=== PATIENT | female | born 1980 | race Caucasian/White ===

== ENCOUNTER 2016-07-29 07:54 | Outpatient (CLI) | payer OTHER ==
[2016-07-29 08:22] VITALS: BMI 25.2
== END 2016-07-29 11:38 | disposition home or self-care (01) ==
LOC: FBCOUT 07:54 → FBC 08:00 → FBCOUT 11:38
PROVIDERS: ATTEND Advanced Practice Midwife
DX: O47.9 False labor, unspecified (principal); Z3A.00 Weeks of gestation of pregnancy not specified
CPT/HCPCS: 59025; G0463

== ENCOUNTER 2016-08-01 13:12 | Inpatient (IN) | payer OTHER ==
[2016-08-08] MEDS ORDERED: OXYTOCIN IN LR 500 ML IV ONE ×2 (07:25→08:10)
[2016-08-08 08:06] VITALS: BMI 26.9
[2016-08-08] MEDS ORDERED: MINERAL OIL 25 ML BOT ONE (08:09)
[2016-08-08] MEDS ORDERED: LACTATED RINGERS 1,000 ML ONE (08:09)
[2016-08-08] MEDS ORDERED: OXYTOCIN 10 UNITS/ML VIAL ONE (08:09)
[2016-08-08] MEDS ORDERED: IV START KIT ONE (08:09)
[2016-08-08] MEDS ORDERED: LIDOCAINE Viscous 2% 15 ML UDCUP ONE (08:09)
[2016-08-08] MEDS ORDERED: LIDOCAINE 1% (PRES FREE) 30 ML VIAL ONE (08:09)
[2016-08-08] MEDS ORDERED: PUMP TUBING ONE (08:10)
[2016-08-08] MEDS ORDERED: OXYTOCIN IN LR 500 ML IV PRN ×2 (08:18→09:05)
[2016-08-08] MEDS ORDERED: LACTATED RINGERS 1,000 ML IV SCH ×3 (08:30→15:02)
[2016-08-08] MEDS: LACTATED RINGERS 1,000 ML IV PRN ×3 (08:30→15:12)
--- NOTE | 2016-08-08 08:46 | PCMAN ---
OB Admission Note - History : 4 Term: 2 : 0 Abortions (S&E): 1 (SAB, complete) Livin EDC:: 08/01/16 Gestational Age (weeks): 41 Days (#/7): 0 Admit Cervical Dilation:: 3 Admit Cervical Effacement (%):: 60 Admit Station:: -2 Admit Presentaton:: Vtx Membrane Status: Intact Contractions: No Contraction Frequency:: occasional Heart Rate:: 140 Status:: Cat 1 EFW:: 9# Summary of Course:: Care from 9 weeks x 15 visits. Dates confirmed by 9 week and 19 week U/S. Elevated 1 hr GT (151) but 3 hr GTT low normal with HgbA1C 4.9. Rest of course was uneventful. AJMI yesterday was 17.4. - Labs Blood Type: O (+) positive Hct/Hgb:: 11.3 Rubella Status: Immune GBS Status: Negative Abnormal Labs: None - Review of Systems Aware of occasional contractions. +FM, no ROM or bleeding. Anxious to have this baby. - Physical Exam General: Afebrile, No Acute Distress Psych/Mental Status: Mood/Affect Appropriate Neurological: Grossly Intact Lungs: Clear to Auscultation Bilaterally Cardiovascular: Regular Rate and Rhythm - Problems (1) Post-dates Qualifiers: Post-term type: 40-42 weeks gestation Qualifier Code: (O48.0 ) Post-term Status: Acute Code: O48.0Assessment/Plan: Discussed options for induction of labor. Patient plans epidural once in active labor. Since cervix is still a little long and very posterior, will start with pitocin to achieve a contraction pattern and consider AROM once cervix effaces more unless labor pattern achieved with pit. Will order epidural once patient is painful. CBC/RPR on admit with AMTSL due to pitocin in labor. PAR discussed with patient and , who agree to plan. Dr. Dawson given update.
[2016-08-08 11:47] LABS: HEMATOCRIT 37.6 % (37.0-47.0); HEMOGLOBIN 12.4 gm/l (12.0-16.0); MEAN CELL VOLUME 93.1 fl (81.0-99.0); MEAN CORPUSCULAR HEMOGLOBIN 30.7 pg (27.0-31.0); RED CELL DISTRIBUTION WIDTH 13.5 % (11.5-14.5)
[2016-08-08] MEDS ORDERED: FENTANYL/ROPIVACAINE EPIDURAL 250 ML EP ONE (12:37)
[2016-08-08] MEDS ORDERED: EPIDURAL PUMP SET ONE (12:37)
--- NOTE | 2016-08-08 13:16 | PDOC36 ---
Provider Note Subject: CNM Progress Note Note: S: Feeling the contractions more definitely, though not terribly painful yet. Has been walking in the calix. O: FHR reassuring with baseline 140's and accels, no decels. UC's now q 2-3 minutes on 6 MU/min pit. Cervix 70%/3/-2, but no longer posterior and inner os softer, vtx well- applied to cervix. vss A: Riper cervix and more reg contractions with pitocin P: AROM to augment induction Continue pit. Will wait for evidence of active labor for epidural order. Continue to encourage ambulation, sitting on ball, etc to facilitate onset of more active labor. Anticipate
[2016-08-08] MEDS ORDERED: EPIDURAL PROCEDURE TRAY ONE (14:25)
--- NOTE | 2016-08-08 14:42 | PDOC36 ---
Provider Note Subject: CNM Labor Progress Note Note: S: requesting epidural, rating pain as 7/10 O: Regular UC's q 2-3 min, FHR now Cat I after period of Cat II with some decels in first 1/2 hour after AROM for large amount clear fluid with flecks of vernix; still leaking clear fluid. VSS stable, afebrile Cervix sl post 90%/4/0 A: Entering active labor pattern on pit P: Epidural ordered, will adjust pit to maintain good contraction pattern. Anticipate
[2016-08-08] MEDS ORDERED: DIPHENHYDRAMINE HCL 50 MG/1 ML VIAL IV PRN (15:02)
[2016-08-08] MEDS ORDERED: EPHEDRINE SULFATE 50 MG/ML 1ML VIAL IV PRN (15:02)
[2016-08-08] MEDS ORDERED: NALOXONE HCL 0.4 MG/ML VIAL IV PRN (15:02)
[2016-08-08] MEDS ORDERED: LACTATED RINGERS 500 ML IV PRN (15:02)
[2016-08-08] MEDS ORDERED: FENTANYL/ROPIVACAINE EPIDURAL 250 ML EP SCH (15:02)
[2016-08-08] MEDS ORDERED: ONDANSETRON 4 MG/2ML 2 ML VIAL IV PRN (15:02)
[2016-08-08] MEDS ORDERED: SODIUM CHLORIDE 0.9% 500 ML IV PRN (15:02)
[2016-08-08] MEDS ORDERED: METOCLOPRAMIDE HCL 5 MG/ML 2ML VIAL IV PRN (15:02)
[2016-08-08] MEDS ORDERED: NALBUPHINE HCL 20 MG/ML AMP IV PRN (15:02)
--- NOTE | 2016-08-08 17:18 | PCMDEL ---
Delivery Note - Labor 1st stage (hr/min):: 3 hr 16 min 2nd stage (hr/min):: 10 min 3rd stage (hr/min):: 07 min Total (hr/min):: 3 hr 33 min - Delivery Delivery (Date): 08/08/16 Delivery (Time): 16:31 Gender: Female Presentation: Cephalic Position: OA Umbilical Cord: 3 Vessel Delayed Cord Clamping:: 2-3 min 1 Minute Total: 8 5 Minute Total: 9 Placenta:: Michelle complete EBL:: QBL 350 Perineum:: 2nd degree gabbi Suture:: 30 vicryl Anesthesia/Meds:: Epidural; 1 % lidocaine for repair Length ROM:: 3 hr 26 min Comments:: Well-controlled delivery vigorous female - to maternal abdomen. Spont placenta, AMTSL done, fundus immed firm. 2nd degree gabbi lac repaired. Remains in Room in good condition, baby latched in first 1/2 hour.
[2016-08-08] MEDS ORDERED: DOCUSATE SODIUM 100 MG CAPSULE PO PRN (17:26)
[2016-08-08] MEDS ORDERED: ACETAMINOPHEN 325 MG TABLET PO PRN (17:26)
[2016-08-08] MEDS ORDERED: LANOLIN 50 APPLIC/7G TUBE TP PRN (17:26)
[2016-08-08] MEDS ORDERED: BENZOCAINE/MENTHOL 60 APPLIC/BOT TP PRN (17:26)
[2016-08-08] MEDS ORDERED: HYDROCODONE/ACETAMINOPHEN 5/325MG TABLET PO PRN (17:26)
[2016-08-08] MEDS ORDERED: MAGNESIUM HYDROXIDE 30 ML UDCUP PO PRN (17:26)
[2016-08-08] MEDS ORDERED: LIDOCAINE 1% (PRES FREE) 30 ML VIAL SUB-Q ONE (17:35)
[2016-08-08] MEDS: IBUPROFEN 800 MG TABLET PO PRN (19:19)
[2016-08-09] MEDS: IBUPROFEN 800 MG TABLET PO PRN ×4 (03:35→23:10)
--- NOTE | 2016-08-09 17:50 | PDOC44 ---
- Subjective Day: 1 Feels well. Plans for discharge tomorrow, Reports Pain Tolerable, Reports , Reports Lochia Moderate - Objective Temp Pulse Resp BP Pulse Ox 98.1 F 63 18 116/69 08/09/16 15:14 08/09/16 15:14 08/09/16 08:14 08/09/16 15:14 Current Medications Generic Name Dose Route Start Last Admin Trade Name Freq PRN Reason Stop Dose Admin Acetaminophen 325 - 650 mg 08/08/16 17:26 Tylenol PO Q4H PRN Pain (Mild) Acetaminophen/Hydrocodone Bitart 1 - 2 tab 08/08/16 17:26 [place] 5/325 PO Q4H PRN Pain (Moderate) Benzocaine/Menthol 1 applic 08/08/16 17:26 08/09/16 00:18 Dermoplast TP 1 bot PRN PRN Administration Patient Comfort Docusate Sodium 100 mg 08/08/16 17:26 Colace PO DAILY PRN Comfort Emollient Ointment 1 applic 08/08/16 17:26 08/09/16 12:38 [id number] TP 1 tube PRN PRN Administration sore nipples Ibuprofen 800 mg 08/08/16 17:26 08/09/16 17:18 Motrin PO 800 mg Q6H PRN Administration Pain (Mild) Magnesium Hydroxide 30 ml 08/08/16 17:26 Milk Of Magnesia PO BEDTIME PRN Constipation Sodium Chloride 10 ml 08/08/16 17:26 Normal Saline 10ml Flush IV PRN PRN IV Flush Sodium Chloride 10 ml 08/09/16 01:00 08/09/16 00:19 Normal Saline 10ml Flush IV 10 ml Q8HR WILL Administration - Physical Exam General: Afebrile Psych/Mental Status: Mood/Affect Appropriate, Bonding Well Neurological: Grossly Intact Breast: Soft, Nipples Intact Fundus: Firm, Midline, Below Umbilicus Genitourinary: Normal Female Genitalia Lochia: Moderate Rectal Exam: Deferred - Problems:Assessment/Plan (1) care and examination of lactating mother Status: AcuteAssessment/Plan: A: Stable PP day one P: Anticipate discharge tomorrow. Disposition: Anticipate DC Home Tomorrow
[2016-08-10 08:03] VITALS: BP 106/57
--- NOTE | 2016-08-10 08:51 | PDOC39B ---
Hospital Course: ADMIT DATE: 08/08/16 DISCHARGE DATE: 08/10/16 ADMISSION DIAGNOSES: IOL for postdates PROCEDURES: segond degree perineal laceration repair HISTORY OF PRESENT ILLNESS: 35 year old G4 T2 L2 at 41 weeks 0 days presenting for IOL. Pitocin and AROM induction achieved adequate labor progress and with second degree perineal laceration that was repaired. Vigorous female , Apgars 8,9. Weight 7lbs 8 oz. HOSPITAL COURSE: The patient is without difficulty. She feels well and pain is well controlled with current medications. By day of discharge the patient is ambulating, eating, voiding, and passing flatus without difficulty. Minimal lochia. Midwifery 'After the ' handout given and reviewed with patient. - Physical Exam Vital Signs: Temp Pulse Resp BP Pulse Ox 97.7 F 58 16 109/57 08/10/16 01:48 08/10/16 01:48 08/10/16 01:48 08/10/16 01:48 General: Afebrile Psych/Mental Status: Mood/Affect Appropriate, Judgment/Insight Intact, Bonding Well Neurological: Grossly Intact, Alert, Oriented x 4 Lungs: Clear to Auscultation Bilaterally Cardiovascular: Regular Rate and Rhythm, Normal S1, Normal S2 Breast: Soft, Skin intact Fundus: Firm, Midline, Below Umbilicus Genitourinary: Normal Female Genitalia Lochia: Light Rectal Exam: Deferred Extremities: Full ROM, Normal Pulses Skin: Normal Color, Warm, Dry, Intact - Discharge Plan Condition: Stable Disposition: Home Instruction Forms: Vaginal Discharge Instructions Follow-Up: Jaclyn Rm CNM [Certified Nurse Spanisher] - As scheduled (1pm on August 22 at the [facility] with Jaclyn)
[2016-08-10] MEDS ORDERED: LACTATED RINGERS 1,000 ML ONE (11:18)
[2016-08-10] MEDS ORDERED: IV START KIT ONE (11:18)
== END 2016-08-10 11:40 | disposition home or self-care (01) | DRG 775 ==
LOC: EDSTATUS 13:12 → FBC 08-08 07:20
PROVIDERS: ADMIT Advanced Practice Midwife; ATTEND Advanced Practice Midwife
PROC: 10E0XZZ Delivery of Products of Conception, External Approach (ICD-10-PCS; principal; 2016-08-08)
PROC: 0KQM0ZZ Repair Perineum Muscle, Open Approach (ICD-10-PCS; 2016-08-08)
PROC: 3E033VJ Introduction of Other Hormone into Peripheral Vein, Percutaneous Approach (ICD-10-PCS; 2016-08-08)
PROC: 10907ZC Drainage of Amniotic Fluid, Therapeutic from Products of Conception, Via Natural or Artificial Opening (ICD-10-PCS; 2016-08-08)
DX: O48.0 Post-term pregnancy (principal); O70.1 Second degree perineal laceration during delivery; Z3A.41 41 weeks gestation of pregnancy; Z37.0 Single live birth